=== PATIENT | female | born 1945 | race African-American/Black ===

== ENCOUNTER 2025-01-06 11:41 | Emergency (ER) | payer MEDICARE, MEDICAID ==
[~2025-01-06] VITALS: Ht 170.2 cm; Wt 110.0 kg
[2025-01-06 11:42] VITALS: O2SAT 99
[2025-01-06 12:33] LABS: BASOPHILS % 0.5 % (0.0-2.0); EOSINOPHILS % 3.4 % (0.0-5.0); HEMATOCRIT. 37.4 % (36.0-48.0); HEMOGLOBIN 11.9 g/dL (12.0-16.0); HEMOGLOBIN. 11.9 g/dL (12.0-16.0); LYMPHOCYTES % 31.1 % (20.0-50.0); MEAN CORPUSCULAR HEMOGLOBIN 29.5 pg (28.0-32.0); MEAN CORPUSCULAR VOLUME 92.3 fL (81.0-99.0); MEAN PLATELET VOLUME 8.6 fl (7.4-10.4); PLATELET 303 x1000/uL (130-400); RED BLOOD CELL COUNT 4.05 mill/uL (4.2-5.4); RED CELL DISTRIBUTION WIDTH 14.4 % (11.6-14.6)
[2025-01-06 12:38] LABS: CHLORIDE 109 mEq/L (98-107); POTASSIUM 3.7 mEq/L (3.5-5.1); SODIUM 142 mEq/L (136-145)
[2025-01-06 12:39] LABS: CALCIUM 9.5 mg/dL (8.7-10.4); CARBON DIOXIDE 25 mEq/L (21-32)
[2025-01-06 12:44] LABS: GLUCOSE 104 mg/dL (70-105); UREA NITROGEN BLOOD 9 mg/dL (9-23)
[2025-01-06 12:47] LABS: INR 1.1; PROTHROMBIN TIME 11.4 sec (9.6-11.0)
[2025-01-06] MEDS ORDERED: CLONIDINE 0.2MG TABLET PO ONE (13:00)
[2025-01-06] MEDS: CLONIDINE 0.1MG TABLET PO SCH (13:03)
[2025-01-06 13:50] VITALS: BP 163/50; PULSE 80; RESP 16; TEMP 36.9; O2SAT 99
== END 2025-01-06 13:51 | disposition home or self-care (01) ==
LOC: ER 12:44
DX: K29.01 Acute gastritis with bleeding (principal); K62.5 Hemorrhage of anus and rectum; D64.9 Anemia, unspecified; I16.0 Hypertensive urgency; Z88.0 Allergy status to penicillin
CPT/HCPCS: 36415; 80048; 85018; 85025; 86850; 86900; 99283; A4606

== ENCOUNTER 2025-08-09 02:14 | Emergency (ER) | payer MEDICARE, MEDICAID ==
[~2025-08-09] VITALS: Ht 167.6 cm; Wt 75.0 kg
[2025-08-09 02:23] VITALS: O2SAT 99
[2025-08-09] MEDS: ACETAMINOPHEN 325MG TABLET PO ONE (03:46)
[2025-08-09] MEDS ORDERED: ACET-2708 MT (04:58)
[2025-08-09 06:48] VITALS: BP 158/47; PULSE 73; RESP 14; TEMP 36.9; O2SAT 99
== END 2025-08-09 06:49 | disposition home or self-care (01) ==
LOC: ER 02:16
DX: M16.12 Unilateral primary osteoarthritis, left hip (principal); M25.562 Pain in left knee; I10 Essential (primary) hypertension; Z88.0 Allergy status to penicillin
CPT/HCPCS: 73502; 73560; 99284